=== PATIENT | female | born 1990 | race African-American/Black ===

== ENCOUNTER 2017-01-28 19:29 | Inpatient (IN) | payer OTHER ==
[~2017-01-28] VITALS: Ht 149.9 cm; Wt 59.0 kg
[2017-01-28] MEDS ORDERED: PROVENTIL HFA6.7 GM INH (20:33)
[2017-01-28] MEDS ORDERED: IBUPROFEN800 M1 PO (20:34)
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
[2017-01-28 21:03] LABS: ABSOLUTE BASOPHIL COUNT 0.1 /CUMM (0.0-0.2); ABSOLUTE EOSINOPHIL COUNT 0.1 /CUMM (0.0-0.7); ABSOLUTE GRANULOCYTE CT 4.5 /CUMM (1.4-6.5); ABSOLUTE LYMPH COUNT 1.7 /CUMM (1.2-3.4); ABSOLUTE MONOCYTE COUNT 0.5 /CUMM (0.10-0.60); BASOPHIL % 0.8 % (0.0-2.0); EOSINOPHIL % 1.9 % (0-5); GRANULOCYTE % 65.3 % (42.2-75.2); HEMATOCRIT 40.2 % (37-47); MEAN CORPUSCULAR VOLUME 91.2 FL (81.0-99.0); MEAN PLATELET VOLUME 8.7 FL (7.4-10.4); PLATELET COUNT 236 /CUMM (130-400); RBC DISTRIBUTION WIDTH 11.8 % (11.5-14.5); WHITE BLOOD CELL COUNT 6.9 /CUMM (4.8-10.8)
--- NOTE | 2017-01-28 22:45 | ED PSY CRISIS COLLATERAL NOTE ---
Collateral Note Collateral Note Family/Inform/Cheryl Contacts: This clinician spoke with grandmother Sierra Beck [phone] who reported her Jazmín has been acting differently. She reports her being paranoid lately and talking alot. The grandmother reports her grandaukiara has made suicidal statement today stating that she would kill herself. She reports Jazmín relationship with her mother is poor and currently residing with her mother.
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
--- NOTE | 2017-01-29 09:04 | ED PSY CRISIS COLLATERAL NOTE ---
Collateral Note Collateral Note Family/Inform/Cheryl Contacts: This clinician spoke with mother Javier Trotter [phone] who reports the Pt is currently residing with her and left and went to [place] for a few days. The mother reports the Pt return and was very agressive. The mother reports the Pt has been paranoid and threatning. The mother reports received serveral texts stating her daughter will kill herself " I am going to do it" " You will be crying over my body". The mother resports having custody of her child a 6 month year old.
--- NOTE | 2017-01-29 16:16 | ED PSYCHIATRIST/APRN CONSULT ---
Psychiatrist/PACKAGE DYEING MACHINE OPERATOR ED Consult Assessment and Plan: 26 y/o woman w/ hx behavioral issues, depressed mood, brought in b/c she had texted mother she wanted to kill herself. She was found to be paranoid, disorganized and oddly related;not reliable historian. She presented similarly, initially coherent (though whispering) but then quickly becoming paranoid about her mother setting her up, being involved in ultimatums to control me and to not allow her to see her children (mother has custody) and involved in her admission here. She stated that she went to [facility] over the weekend b/c she had family there but was unable to explain what she did there, why she went suddenly , overall guarded and returns to topic of her mother continuously. She denied any symptoms, interrupting and going in tangent about her mother setting her up when asked. She stated that she has no mental health problems though she has been in treatment since adolescence, and that she does not need treatment. She did not want any treatment currently, denied any recent meds. MSE: young woman, well groomed with good eye contact. Whispering initially; with rapid speech once evaluation continued. Perseverative about her mother, off topic and difficult to redirect to other topics when discussing mother. Mood is irritated, affect somewhat labile. Suspect some developmental delay/cognitive deficits but no gross abnormalities. Thought process tangential; content + global paranoia toward mother and others involved in her care. Insight absent to current sx, judgment poor. A: 26 y/o woman presents w/ paranoia, tangential thinking, unknown baseline; per family had written text she had wanted to kill herself, which she denies. Unclear whether she has some personality/developmental sx which cause some of her current sx or whether this is a primary psychiatric d/o. Dx unspecified psychotic d/o. P: needs IP admission for diagnostic clarification, suicidal statements over text; erratic behavior - consider meds (and re-start if she had them?). Need collateral from her outpatient support/DCF involvement she stated she had support from [employer]; to get her baseline and more information about her family situation.
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
[2017-01-30 14:25] VITALS: BP 119/50
[2017-01-30 16:51] VITALS: BP 131/77
--- NOTE | 2017-01-30 17:05 | CPS MD/APRN INITIAL ASSE PSYCH ---
Psychiatric Admission Vascular Tech's Note Reviewed: Yes Patient Seen and Examined: Yes Identifying Information: young woman Chief Complaint: suicidal statements Reaction to Hospitalization: irritated initially History of Present Illness Onset of Illness: several years ago Circumstances Leading to Admission: texted her brother that she wanted to kill self Problem(s) Justifying Need for Admission: suicidal threats Other HPI: see below Past Psychiatric History Past Diagnosis(es)- if any: has dss services, some learning disability Past Precipitating Factors- if any: argument w/ mother - Include inpatient and outpatient treatment Treatment History: outpatient treatment however she is very vague about details History of Suicide Attempts or Gestures she denied any Substance Abuse History: cannabis daily Allergies: Coded Allergies: No Known Allergies (01/28/17) Home Med List: albuterol prn asthma, motrin prn pain - Include any medical condition(s) that may - impact the patient's recovery/remission Past Medical History: asthma Past History Medical History Neurological: LEARNING DISABILITY EENT: NONE Cardiovascular: NONE Respiratory: asthma Gastrointestinal: NONE Hepatic: NONE Renal: NONE Musculoskeletal: NONE Psychiatric: NONE, depression, substance abuse Endocrine: NONE Isolation History: Standard Surgical History Surgical History: non-contributory Psychiatric Family/Social Hx Family History Psychiatric Illness: denied Substance Use: unknown Suicides: unknown Social History Living Situation: lives w/ mother - no longer wants to live w her Significant Relationships (family/friends): mother, cousins and grandmother, children are her supports Education: HS, not in special education Vocation/Occupation: works currently Legal: denied Healthly Behaviors Screening Tobacco Screening Tobacco Use from ED Docu: Never used - If tobacco counseling indicated - the following topics are required. - #1 Recognizing dangerous situations. - #2 Coping Skills. - #3 Basic information about quitting. Status of Tobacco Cessation Counseling: N/A B/C NO TOB USE Cessation Med Status: No Tobacco Use last 30d Alcohol Screening - ETOH screen POS if BAL >=80 or Audit-C>= M4/F3 Audit-C Score from Diag Assess: 0 Blood Alcohol Level: Laboratory Tests 01/28 2037 Toxicology Serum Alcohol (<10 MG/DL) < 10.0 Alcohol Use Screening Results: Neg per Audit C &/or BAL - If ETOH counseling indicated - the following topics are required. - #1 Express concern about the patient's - drinking at unhealthy levels, include informing - of national norms for moderate drinking: - men <= 14 drinks/week, max 4 drinks/occasion - women <= 7 drinks/week, max 3 drinks/occasion - #2 Providing feedback, including linking alcohol to - negative physical effects (liver injury, hypertension) - negative emotional effects (relationship problems and - depression) - negative occupational consequences (reduced work - performance) - #3 Advising the patient to abstain from alcohol or - to drink below national norms for moderate drinking - (as listed above). Status of ETOH Use Counseling: N/A B/C NO ETOH Use Metabolic Screening - Screen if on a Neuroleptic Medication - Metabolic screening should include: - Blood Pressure, BMI, Glucose or Hgb A1c, & a - Lipid profile from within the past 365 days. Metabolic Screening () Not Applicable, patient not on a neuroleptic. OR () Patient on a neuroleptic(s) . Enter below results for Glucose or Hemoglobin A1C, and lipid panel if obtained during the last 365 days. BMI: 26.200 Blood Pressure: 131/77 Laboratory Results (If applicable): Exam and Plan Mental Status Examination Ambulation Status: normal Appearance: well groomed Attitude towards examiner: irriated Psychomotor activity: normal Behavior: odd, erratic statements at times Quality of speech: normal to rapid Affect: constricted to full Mood: irritated Suicidal Ideation: none currently, however endorsed to nurses earlier Homicidal Ideation: none Hallucinations: denied Paranoid/Delusional Material: believes she was set up by her mother or brother to be here Difficulties with thought organization: tangential, needs redirection at times Insight: impaired Judgment: impaired Orientation: x3 Cognition: grossly intact Memory Function: grossly intact Estimate of intellectual functioning: below average Assets/Strengths Patient Identified Assets/Strengths: family support, young children Impression/Plan Impression and Plan: 26 y/o woman w/ hx behavioral issues, depressed mood, brought in b/c she had texted brother she wanted to kill herself. She was found to be paranoid, disorganized and oddly related; not reliable historian. She stated that her mother was involved in ultimatums to control me and to not allow her to see her children (mother has custody of one child), then stating that her brother may also be involved. She interrupted frequently, stating that maybe I do belong here, thats what they want, its protocol with DCF, someone put in an anonymous tip on me and similar statements perseverating on her mother. She stated that she has been fine when asked any questions regarding appetite, sleep etc; stating she went to [facility] to see some friends and came back b/c of her family asking her to return earlier, and then she ended up in the hospital. She denied SI/HI to me, however she had endorsed SI to nurse on admission. She stated to nursing that suicide was something she might plan for, then denying it. She is difficult to get a coherent story from, going back to her mother when any questions are asked. She did state that she had been in outpatient mental health tx in the past; has had ER visits for mental health; no suicide attempts. MJ daily, no other drug use. mother has custody of one of her children and she has partial custody of another. She frequently laughed inappropriately, did not appear to understand the reason for admission, denying any sx. She stated that she has to work on Tuesday and requested to be discharged by them, was educated regarding stabilization may take several days.A: 26 y/o woman presents w/ paranoia, tangential thinking, unknown baseline; per family had written text she had wanted to kill herself, which she denies. Unclear whether she has some personality/developmental sx which cause some of her current sx or whether this is a primary psychiatric d/o. Dx unspecified psychotic d/o. P: needs IP admission for diagnostic clarification, suicidal statements over text; erratic behavior (family stated she has been acting different recently). She refused any meds, stating Im not that crazy despite education. Need to call DCF rn case manager on Tuesday to f/up w/ her text message and with her baseline. Also she stated she has a DDS worker who would be able to provide some more information regarding her baseline. - Include all active medical diagnosis that require tx DSM 5 Diagnosis(es): unspecified psychogic disorder - Initial Tx Plan for Active Psych & Medical Conditions Treatment Plan: milieu, groups, collateral from family - Factors that would help patient function - in a less restrictive setting. Factors: She has risks associated w/ recent suicidal threats, vague and ambivalent statements about suicide; paranoia.
[2017-01-30 20:01] VITALS: BP 131/96
--- NOTE | 2017-01-30 23:39 | Admission Certification ---
Admission Certification Certification Statement - As attending physician, I certify that at the time of - admission, based on clinical presentation, severity of - symptoms, need for further diagnostic testing and - therapeutic interventions, and risk of adverse outcomes - without in-hospital treatment, in my clinical assessment, - this patient requires an acute hospital stay for a minimum - of two nights or longer. I have also considered psychsocial - factors such as support system, advanced age, financial - issues, cognitive issues, and failed out-patient treatments, - past re-admission history, safety of patient, and lack of - compliance as applicable. Specific rationale supporting this admission is: suicidal ideation
--- NOTE | 2017-01-30 23:39 | History & Physical ---
General Information and HPI MD Statement: I have seen and personally examined ILANA PETIT and documented this H&P. The patient is a 26 year old F who presented with a patient stated chief complaint of [medical evaluation]. Source of Information: patient Exam Limitations: no limitations History of Present Illness: Patient is admitted for evaluation of suicidal ideation. Patient appears frustrated and keeps on saying "may be I belong here" She is currently menstruating. She has asthma and uses ventolin as and when required, approximately once a week. no CP, SOB, palpitation, headache, dizziness, nausea, vomiting, constipation, diarrhea, abdo pain, leg swelling, urinary complaints, neurologic weakness, hallucination, delusions, suicidal ideation. She is worried about missing her work. Allergies/Medications Allergies: Coded Allergies: No Known Allergies (01/28/17) Home Med list Albuterol Sulfate (Proventil Hfa) 90 MCG HFA.AER.AD 2 PUF INH PRN ASTHMA ( Reported) Ibuprofen 800 MG TABLET 1 TAB PO PRN PAIN/INFLAMMATION (Reported) Compliance With Home Meds: GOOD Past History Travel History Traveled to [place] past 21 day No Medical History Neurological: LEARNING DISABILITY EENT: NONE Cardiovascular: NONE Respiratory: asthma Gastrointestinal: NONE Hepatic: NONE Renal: NONE Musculoskeletal: NONE Psychiatric: NONE, depression, substance abuse Endocrine: NONE Blood Disorders: NONE Cancer(s): NONE POST ACUTE CARE NURSE PRACTITIONER/Reproductive: NONE (3 year back), chlamydia Isolation History: Standard Surgical History Surgical History: non-contributory Past Family/Social History Family History Relations & Conditions if any MOTHER FHx: stroke Psychosocial History Where do you live? Home Services at Home: None Primary Language: Telugu Smoking Status: Never Smoked ETOH Use: occasional use Illicit Drug Use: marijuana Living Will? unknown Functional Ability ADLs Independent: dressing, eating, toileting, bathing. Ambulation: independent IADLs Independent: shopping, housework, finances, food prep, telephone, transportation , medication admin. Sexual History Sexually Active Yes # of partners 1 Sexual Orientation Heterosexual Use of Protection Yes Sometimes Employment History Employment Employed ([employer]) Review of Systems Review of Systems Constitutional: Reports: no symptoms. EENTM: Reports: no symptoms. Cardiovascular: Reports: no symptoms. Respiratory: Reports: no symptoms. GI: Reports: no symptoms. Genitourinary: Reports: no symptoms. Musculoskeletal: Reports: no symptoms. Skin: Reports: no symptoms. Hematologic/Endocrine: Reports: no symptoms. Date of LMP: 01/29/17 Exam & Diagnostic Data Last 24 Hrs of Vital Signs/I&O Vital Signs Date Time Temp Pulse Resp B/P B/P Pulse O2 O2 Flow FiO2 Mean Ox Delivery Rate 01/30 2001 98.4 92 131/96 01/30 1651 81 131/77 01/30 1425 97.6 90 119/50 01/30 1338 97.6 88 16 111/79 92 Room Air 01/30 0813 98.4 71 16 114/68 100 Room Air Intake & Output 01/30 0000 01/30 0800 01/30 1600 Intake Total Output Total Balance Patient 58.967 kg Weight Physical Exam General Appearance Alert, Oriented X3, Cooperative, No Acute Distress Skin No Rashes, No Breakdown, No Significant Lesion HEENT Atraumatic, PERRLA, EOMI, Mucous Membr. moist/pink Neck Supple, No JVD, No thryomegaly, +2 Carotid Pulse wo Bruit Lymphatic Cervical nl Cardiovascular Regular Rate, Normal S1, Normal S2, No Murmurs Lungs Clear to Auscultation, Normal Air Movement Abdomen Normal Bowel Sounds, Soft, No Tenderness, No Hepatospenomegaly Neurological Exam Findings: Normal Gait, Normal Speech, Strength at 5/5 X4 Ext, Normal Tone, Sensation Intact, Cranial Nerves 3-12 NL, Reflexes 2+ Cranial Nerves II through XII: 3 to 12 intact Extremities No Clubbing, No Cyanosis, No Edema, Normal Pulses, No Tenderness/ Swelling Vascular Normal Pulses, Pulses Symmetrical Last 24 Hrs of Labs/Hussein: Laboratory Tests 01/29 825 Chemistry Sodium (137 - 145 mmol/L) 138 Potassium (3.5 - 5.1 mmol/L) 3.5 Chloride (98 - 107 mmol/L) 99 Carbon Dioxide (22 - 30 mmol/L) 26 Anion Gap (5 - 16) 14 BUN (7 - 17 mg/dL) 11 Creatinine (0.5 - 1.0 mg/dL) 0.7 Estimated GFR (>60 ml/min) > 60 BUN/Creatinine Ratio (7 - 25 %) 15.7 Glucose (65 - 99 mg/dL) 92 Calcium (8.4 - 10.2 mg/dL) 9.4 Assessment/Plan Assessment: # SI : await psy plan # Asthma: continue prn albuterol # menstrual cramps: motrin 800 (patient's request) As Ranked By This Provider Problem List: 1. Depression Miscellaneous Miscellaneous Documentation Attending Case Discussed With: CHRISTIAN TOM,ANDRIA Rowell Primary Care Physician: UNKNOWN Patient sees these Specialists unknown Level of Patient Care: BROOK Tran
[2017-01-31 08:13] VITALS: BP 106/75
[2017-01-31 12:25] VITALS: BP 105/68
--- NOTE | 2017-01-31 15:19 | CP SOUTH PROGRESS NOTE PSYCH ---
Psych (Inpt) Progress Note Progress Note Include the following elements, when applicable: Involvement in the active treatment of the patient with behavioral observations of the patient and the patient's response to the treatment. Review of the ongoing treatment process in the context of the treatment plan. Indication of how multi-disciplinary staff members are carrying out the treatment plan. Plans for future interventions and recommendations for revision of the treatment plan. Liaison with other physicians/providers. Progress Note: I discussed this patient's progress to date, current mental status, treatment process in the context of the treatment plan, and discharge planning with staff/ team in the daily morning inpatient team meeting. I also met with the patient myself in individual session. S: "I don't know why I'm here?" O: Current Medications Sig/Giselle Start time Last Medication Dose Route Stop Time Status Admin Albuterol Sulfate 2 PUF Q4 PRN 01/30 1700 AC INH Hydroxyzine HCl 25 MG AT BEDTIME NEED.. 01/30 1700 AC 01/30 PO 2254 Hydroxyzine HCl 25 MG Q6-PRN PRN 01/30 1700 AC PO Ibuprofen 800 MG ONCE PRN 01/31 0600 DC PO 01/31 0601 Ibuprofen 400 MG ONCE ONE 01/30 2245 DC 01/30 PO 01/30 2246 2254 Ibuprofen 400 MG Q4P PRN 01/30 1700 AC 01/31 PO 1116 Vital Signs Date Time Temp Pulse Resp B/P B/P Pulse O2 O2 Flow FiO2 Mean Ox Delivery Rate 01/31 1225 88 105/68 01/31 0813 97.8 93 106/75 01/30 2001 98.4 92 131/96 01/30 1651 81 131/77 A: Chart, progress notes, VS, labs and medication list were reviewed. Vital signs within normal limits. No new labs results today. Patient is a 26-year old AAF, with an unclear psychiatric history, self reported learning disorder and ? personality/developmental symptoms possibly contributing to recently presenting symptoms of paranoia and disorganized thought process. Per ED Crisis evaluation on 01/28/17, the patient was BIBA due to the belief that she had been "set up" by her mother and her job ([employer]). On encounter today, the patient reported that on 01/28/17, she was brought to ED by her grandmother and her [id number] by Jacob farmer from [place] to ED initially for unclear reasons. She attributed her being brought here to recent DCF involvement and an altercation had with her mother, related to her going to [place] to visit her cousin last . She shared a longwinded story about having posted a picture of her godson on facebook over the weekend while in [place] visiting her cousin. She reported her grandmother saw this post, and posted back an offensive remark which she had difficulty describing. Patient stated that after that she deleted her facebook account, she texted her brother she wanted to plan her . When asked if she meant this, she denied. When asked what led her to texting this, she reported feeling "worked up." She described having a complicated and "overwhelming" relationship with her mother; at times she referred to her mother as "controlling" and "she tries to control my life." She also referred to her mother as being her "conservator" at times and then as her "rep payee" and her "only controlling my money." A VM was left for her mother to clarify whether she is her conservator (JOSE in paper chart). She reported triggers to behavior included discord with her mother in addition to recent DCF involvement related to an anonymous report. Patient denied prior DCF involvement. Reported having a 4y/o son who she shares custody of with her mother; also reported having a 6-month old son who she has full custody of. She reported living at home with her mom, 22y/o brother, 8 y/o sister, and two sons in [place]. Patient denied prior inpatient psych hospitalizations. She reported prior tx in psychotherapy during her adolescence. Denied prior trials of psychotropic medications. Reported having a DDS worker (Michelle). On encounter, patient was alert and oriented x 3; well-groomed. Mood was "alright, but I'd rather be home." Affect full-range, non-labile. Reported energy level as "fine." Thought process was tangential at times, requiring redirection back to conversation topics and questions being asked. She was difficult to redirect while talking about her mother. Speech was variable - normal to hyperverbal. Eye contact was appropriate. Behavior was overall cooperative. No psychomotor retardation or agitation. She denied passive and active suicidal ideation, plans and intent. Identified protective factors of "my 2 sons," "my grandma," "my cousin." Denied prior suicide attempts. Denied homicidal ideation, auditory and visual hallucinations. Denied paranoid thoughts. Seems unclear if patient endorses PI towards her mother; as she seems overwhelmed by the amount of control her mother has over her life which may be true if her mother is in fact her conservator or rep payee. No longer appears paranoid over job. Limited and judgement were poor. Remains unclear whether patient has underlying personality/developmental symptoms contributing to present symptoms. Patient is refusing treatment at this time, focused on returning to work tomorrow. Patient was offered to sign a termination of voluntary form, but declined at present. Was informed that if she changed her mind during the night to approach nursing to sign form. Will require collateral information for further clarification of tx history and tx needs. VM left for patient's mother today. P: 1. Continue monitoring patient on unit for safety, mood, ? paranoia and suicidal ideation. 2. Obtain collateral from patient's mother, DDS Worker, DCF to help establish baseline. Confirmation needed from mother about whether or not she is the patient's conservator, given conflicting documentation in crisis eval and conflicted reports by pt. *If she is, copy legal paperwork must be brought in* 3. Will need to schedule family meeting with mother/family for dispo planning. 4. Will continue monitoring for psych symptoms to determine need for psychotropic intervention.
[2017-01-31 16:03] VITALS: BP 133/62
--- NOTE | 2017-01-31 16:07 | IP INCIDENTAL NOTE PSYCH ---
Incidental Note Notation: left for Ellen Porras, patient's mother/ ? conservator (#[phone]) today requesting a return phone call for collateral and to clarify legal status.
--- NOTE | 2017-01-31 17:31 | SOCIAL WORKER PROG NOTE PSYCH ---
Social Work Progress Note Progress Note Mira San APRN and I met with Devorah together this afternoon. Devorah presented as cooperative, oriented x3, no overt evidence of psychosis. She denied having any SI/HI. She begain to explain how she feels "set up" by her Mother, and family to come to the hospital. She explained how she was with her DDS worker and then a DCF worker showed up. She then went on to state how she made arrangements for her family to watch her 6 month old and 4yo son, while she went to visit her cousin in [place]. She was visibly upset and very anxious when describing a 'he said, she said" story of various family members, difficutl to follow. Devorah seemed to have pressured speech, and clearly was emotional about being in the hospital, and wanting to leave. She expressed how she lives with her Mother, who is her conservator - Devorah stated she chose her Mother because she thought she needed her help. She agreed to sign a release for her Mother, and Ms. San will attempt to reach her Mother (conservator) to get copies of the papers and to get collateral. Plan for family meeting as soon as possible.
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
[2017-01-31 20:07] VITALS: BP 136/74
[2017-02-01 08:02] VITALS: BP 139/88
--- NOTE | 2017-02-01 11:39 | SOCIAL WORKER PROG NOTE PSYCH ---
Social Work Progress Note Progress Note Spoke with Devorah's Mother, Susan Porras who stated she is conservator of person, finances and estate. She is going to obtain a copy of the Conservator papers from [facility] today, and Fax them to [facility] ([id number]) office. Ms. Porras stated she cannot come in for a meeting due to babysitting issues with her grandchildren (Devorah's 2 children 6months, and 4yo), as well has her own medical appointments and her Mother's (Jimmy' Grandmother) medical appointments ( the soonest she could come in for a meeting was 02/04 at 11am ). Tried to convince Ms. Porras that Devorah may be discharged prior to 02/04, she still maintained she cannot come into [facility] for a meeting until then. Ms. Porras stated Devorah has been acting unpredictable - leaving for the past few weekends (and leaving caregiving of her 2 young children to family members), and gone for longer periods of time. Most recently was gone from last . through the weekend EDGE GLUERKirt Garcia stated when Devorah returned from [place], she appears to be under the influence of something. She states that Devorah often "wants a break" from everything and then leaves. She stated Devorah loves her two children. She stated she has noticed Devorah has been depressed since she was 10yrs old, and uses Cannibis. She stated DDS worker, Michelle Elaine has been involved with Devorah (not sure how long...years?). She didn't have her phone number available. Also, subsequently [facility] became involved due to most recent incident prior to admission. The DCF worker is, Domenic Ahuja Ph#. Plan to contact both DCF and DDS worker. Met with Devorah, informed her I spoke with her Mother (Devorah signed an JOSE - will have Mother sign as well). Devorah continued to say how she feels "set-up' by her Mother, and that her Mother wants to "just leave me here." Devorah stated she wants to leave and move somewhere else away from her Mother. She wants to appoint another Conservator. She stated she smokes Cannibis daily and does not want to stop smoking. Devorah stated she smokes at home (Cannibis), but "I take care of my children, I feed them, bathe them, then I smoke after they are all taken care of." Discussed with Devorah if she feels her Cannibis use is a problem, she denied it's a problem. She did say she was goign to quit smoking, but now that her Mother has done this (hospitalization, DCF?), that she will continue to smoke. Devorah is aware of the 11am phone conference tomorrow.
[2017-02-01 12:13] VITALS: BP 99/60
[2017-02-01 15:54] VITALS: BP 136/87
--- NOTE | 2017-02-01 18:13 | CP SOUTH PROGRESS NOTE PSYCH ---
Psych (Inpt) Progress Note Progress Note Include the following elements, when applicable: Involvement in the active treatment of the patient with behavioral observations of the patient and the patient's response to the treatment. Review of the ongoing treatment process in the context of the treatment plan. Indication of how multi-disciplinary staff members are carrying out the treatment plan. Plans for future interventions and recommendations for revision of the treatment plan. Liaison with other physicians/providers. Progress Note: I discussed this patient's progress to date, current mental status, treatment process in the context of the treatment plan, and discharge planning with staff/ team in the daily morning inpatient team meeting. I also met with the patient myself in individual session. S: "I feel like she (pt's mother) set me up." O: Current Medications Sig/Giselle Start time Last Medication Dose Route Stop Time Status Admin Albuterol Sulfate 2 PUF Q4 PRN 01/30 170 AC INH Hydroxyzine HCl 25 MG AT BEDTIME NEED.. 01/30 1700 AC 01/30 PO 2254 Hydroxyzine HCl 25 MG Q6-PRN PRN 01/30 170 AC PO Ibuprofen 400 MG Q4P PRN 01/30 1700 AC 01/31 PO 1803 Vital Signs Date Time Temp Pulse Resp B/P B/P Pulse O2 O2 Flow FiO2 Mean Ox Delivery Rate 02/01 1554 80 136/87 02/01 1213 85 99/60 02/01 0802 96.8 84 139/88 01/31 2007 98.6 89 136/74 A: Chart, progress notes, labs, VS and medication list were reviewed. No new lab results today. Vital signs within normal limits. Reviewed patient's progress to date with nursing staff. Patient has been in good behavioral & physical control, no evidence of paranoia or delusions. Attending milieu groups. Met with patient this afternoon. She expressed feeling that her mother is out to set her up. She suspects that someone called DCF in her family to make her look like an "unfit mother" d/t ongoing family discord. She reported feeling frustrated at situation, feels her mother is delaying visits/avoiding to speak to primary team to keep her here longer. Informed patient that Belgica Beltran LCSW spoke to her mother today who will be available for a phone conference tomorrow morning. I was informed by Belgica Beltran LCSW that the patient's mother confirmed that she is the patient's conservator and will bring in paperwork verifying this information. The patient remains future-oriented and focused on returning to work and follow-up with DCF once discharged. She denied passive and active suicidal ideation, plans and intent. Denied homicidal ideation. She denied acute symptoms of depression. Reported feeling frustrated and anxious about remaining here. She is not interested in medication trials for anxiety. Reported daily cannabis use, however did not state whether she used this to self-medicate. She reported "I just like to smoke." She expressed an interest in individual therapy post-discharge. Thought process was distracted, but much less than during yesterday's encounter. She responded to redirection and answered questions appropriately. She denied AVH and PI. It is unclear if patient is endorsing PI towards her mother, or if her perception of family dynamics is limited by a possible developmental/intellectual disorder in addition to family discord. Will need collateral from family to determine patient's baseline. Counseling on cannabis use was provided to patient. Informed her of the physical /mental/legal consequences of cannabis use. Also informed her that use of cannabis during a DCF investigation could lead to custody consequences with her children. She verbalized understanding of information; however reported she did not have much motivation to stop using. Judgement and insight remain limited. Speech was hyperverbal at times, non-pressured. Eye contact was appropriate. Mood "frustrated." Affect constricted, non-labile. Thought process was circumstantial. Thought content was perseverative about her mother. Congition was grossly intact. P: 1. Continue monitoring on unit for safety, mood, ? paranoia. 2. Phone conference with patient's mother tomorrow afternoon. 3. Dispo planning per primary team. 4. Obtain contact information for pt's DDS worker from pt's mother for additional collateral
[2017-02-01 20:35] VITALS: BP 125/66
[2017-02-02 07:56] VITALS: BP 125/84
--- NOTE | 2017-02-02 11:15 | CP SOUTH PROGRESS NOTE PSYCH ---
Psych (Inpt) Progress Note Progress Note Include the following elements, when applicable: Involvement in the active treatment of the patient with behavioral observations of the patient and the patient's response to the treatment. Review of the ongoing treatment process in the context of the treatment plan. Indication of how multi-disciplinary staff members are carrying out the treatment plan. Plans for future interventions and recommendations for revision of the treatment plan. Liaison with other physicians/providers. Progress Note: I discussed this patient's progress to date, current mental status, treatment process in the context of the treatment plan, and discharge planning with staff/ team in the daily morning inpatient team meeting. I also met with the patient myself in individual session. S: "She (mother) probablly won't warehouse order picker the phone, she wants me to stay here." O: Current Medications Sig/Giselle Start time Last Medication Dose Route Stop Time Status Admin Albuterol Sulfate 2 PUF Q4 PRN 01/30 1700 AC INH Hydroxyzine HCl 25 MG AT BEDTIME NEED.. 01/30 1700 AC 01/30 PO 2254 Hydroxyzine HCl 25 MG Q6-PRN PRN 01/30 1700 AC PO Ibuprofen 400 MG Q4P PRN 01/30 1700 AC 01/31 PO 1803 Vital Signs Date Time Temp Pulse Resp B/P B/P Pulse O2 O2 Flow FiO2 Mean Ox Delivery Rate 02/02 0756 96.5 82 125/84 02/01 2035 98.3 85 125/66 02/01 1554 80 136/87 02/01 1213 85 99/60 A: Chart, progress notes, labs, VS and medication list reviewed. Vital signs within normal limits. No new labs results today. Met with Haley and rene Beltran LCSW together for phone conference with Haley's mother, Ellen. Haley's mother expressed concern for her "erratic " behaviors, behavioral impulsivity, cannabis use, depression and naivetee/ easily trusting nature. Ellen expressed that Haley has learning diasbilities and doesn't always think things through. Ellen denied the patient making prior suicide attempts. She expressed that she felt Haley would benefit from a mood sabilizer, which I agreed with; however to date the patient refuses medication trials and has shut down at any mention of medication education. Ellen stated that she wants her daughter to be responsible and be a "mother" to her children. She would like Haley to transition into therapy post-discharge. Ellen informed us that she now has temporary guardianship of both of Haley's children since [facility] recently became involved. Haley became angry and began yelling at her mother for "taking control of my life, my children, they're my kids." It took both Rene and myself to explain to Haley that if he mother did not claim custody of her children than both of her children would be temporarily placed in DCF custody. She calmed down upon hearing this. Patient was A&Ox3. Speech was loud, rapid at times. Mood somewhat labile; mostly irritable towards mother, blaming mother for controlling her life despite being her conservator. She seemed able to stay better on topic during phone conference. Thought process was somewhat circumstantial. Thought content was angry. Cognition was grossly intact. She continued to deny SI, plans, intent. Deneid homicidal ideation, auditory and visual hallucinations. No evidence of overt paranoia or delusions. Insight/judgement limited. She reported sleep and appetite were good. Patient was offered a trial of Abilify 5mg for mood stabilization; patient declined, "I'm not taking any medication." Patient however was agreeable to transition into [facility] level of care post discharge at [facility]. IMPRESSION: Unspecified depression R/O Substance-induced depressive disorder R/O Bipolar disorder unspecified. P: 1. Continue monitoring for safety, mood, suicidal ideation, ? paranoia. 2. Continue education on medications, coping skills, and aftercare tx. 3. Dispo planning per primary team.
--- NOTE | 2017-02-02 12:21 | SOCIAL WORKER PROG NOTE PSYCH ---
Social Work Progress Note Progress Note Mira San APRN and I met with Devorah today and haqd a conference call meeting with her Mother, Ellen. Her Mother, Ellen expressed concern about Devorah's Cannibis use and leaving for days at a time - and having family care for 2 young children 6 month old and 4yo. Her Mother expressed how Jaron is "acting erratic" and is "depressed." She wants Devorah to engage in treatment ( therapy), and abstain from using Cannibis. She stated when Devorah smokes Cannibis "it makes you act different, more erratic." Devorah seemed to be frustrated by her Mother, essentially pleading with Devorah to tkae better care of her self, stating "you have 2 children now,, you can't just run off to [place]." Her Mother espressed how Devorah has been "sleeping with men and getting ", then stated "I want more for you, I want you to reach your goals in life, but it doesn't happen instantly." Began discussion of DCF involvement, Devorah was focused on who it was who contacted DCF. Her Mother stated she didn 't know, I mentioned how it could have been anyone - that Hospital social workers are mandated reporters too. Haley was informed that her Mother has temporary guardianship of her two children (6 mo. and 4yrs old). Devorah became very angry and was yelling at her Mother. It took time to calm Devorah down and explain that while she is in the hospital, her Mother obtained temporary guardianship to protect her children (if medical issues). Discussed with Devorah how with DCF involvement, that she will need to engage in treatment, but medications are not mandated. Devorha insists she will not take medication, but repeated "I want to smoke pot, it makes me happy." Towards the end of the meeitng Devorah did agree to consider IOP possibly at [facility] - in [place], near where she resides. Devorah exhibited a labile mood, angry at her Mother, seems to have limited insight and judgement. She repeated how she wants to go home and move to [place] with her Children. Phoned DCF worker, Domenic Arthur PH#[phone], left a voicemail to call back regarding Dveorah. Family meeting scheduled for 02/04 at 11am with Haley's Mother, Ellen, her grandmother, Sierra, and 20yo sister, as well as DCF worker, Domenic Elaine and DDS worker, Michelle Elaine. (this was soonest time famiily could come in for meeting). Ellen (Pt's Mother), stated she would bring in the conservator papers on 02/04. Completed [facility] online review. Need to obtain an JOSE for release [facility] and complete referral to [facility].
[2017-02-02 12:25] VITALS: BP 122/96
[2017-02-02 16:42] VITALS: BP 111/72
[2017-02-02 20:04] VITALS: BP 132/87
[2017-02-03 07:58] VITALS: BP 108/85
[2017-02-03 12:26] VITALS: BP 113/66
--- NOTE | 2017-02-03 14:17 | SOCIAL WORKER PROG NOTE PSYCH ---
Social Work Progress Note Progress Note Met with patient today, she is open to attending an IOP level of care. She denies si/hi/ah/vh. She reports she wants to learn ways to manage all the things she has to complete in her life, and learn ways to cope better with stress and motherhood. 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 She would like to continue to work, and learn to drive, as well as "be there for my kids". Pt has limited insight and can be paranoid at times, she is redirectable but has cognitive impairments.
--- NOTE | 2017-02-03 14:21 | SOCIAL WORKER PROG NOTE PSYCH ---
Social Work Progress Note Progress Note Faxed a referral to [facility] awaiting an intake appointment. DCF worker Joanna will not be able to attend meeting Tuesday at 11. I spoke with patients Mother she will attend meeting she is hopeful that her daughter will not be victimized and begin to take the steps she needs to do to achieve things at her own pace. Mom and patient are comfortable with discharge tomorrow, and pt is agreeable to [facility] services, once we can secure and appointment.
[2017-02-03 15:31] VITALS: BP 128/63
--- NOTE | 2017-02-03 16:14 | SOCIAL WORKER PROG NOTE PSYCH ---
Social Work Progress Note Progress Note Secured an intake appointment with [facility] at [address] on February 09, at 9:30 and 1030 with . Program will begin February 10r (T, w, TH, f) 9-12:30PM fax Number is [phone] and phone number is [phone]
--- NOTE | 2017-02-03 17:46 | CP SOUTH PROGRESS NOTE PSYCH ---
Psych (Inpt) Progress Note Progress Note Progress Note: I discussed this patient's progress to date, current mental status, treatment process in the context of the treatment plan, and discharge planning with staff/ team in the daily morning inpatient team meeting. I also met with the patient myself in individual session. OBJECTIVE: Current Medications Sig/Giselle Start time Last Medication Dose Route Stop Time Status Admin Albuterol Sulfate 2 PUF Q4 PRN 01/30 1700 AC INH Hydroxyzine HCl 25 MG AT BEDTIME NEED.. 01/30 1700 AC 01/30 PO 2254 Hydroxyzine HCl 25 MG Q6-PRN PRN 01/30 170 AC PO Ibuprofen 400 MG Q4P PRN 01/30 170 AC 01/31 PO 1803 Vital Signs Date Time Temp Pulse Resp B/P B/P Pulse O2 O2 Flow FiO2 Mean Ox Delivery Rate 02/03 1531 81 128/63 02/03 1226 90 113/66 02/03 0758 97.6 90 108/85 02/03 2004 98.0 97 132/87 ASSESSMENT: Today I am filling in for Mira San APRN. This is my first time meeting with this patient. Patient offers no complaints. She declines medications. States she feels safe and ready for discharge tomorrow morning. Her civil litigation attorney was here this afternoon to speak with her. Depression:0/10; Anxiety:0/10 (with 10 the worst.) Denies suicidal ideation, homicidal ideation, auditory hallucinations, visual hallucinations, paranoid ideation. Patient states and also believes that she will not kill herself. States that she sleeps well at home, less well here. States her appetite and energy are good. Speech is well articulated, goal-directed, average in rate, volume and tone. Calm, cooperative, logical. Alert and oriented 3. PLAN: Anticipate discharge tomorrow. Patient agrees to attend [facility]. Continue with current management as patient is improving. Continue to provide support and encouragement.
[2017-02-03 20:08] VITALS: BP 136/66
[2017-02-04 08:15] VITALS: BP 112/77
--- NOTE | 2017-02-04 11:16 | CP SOUTH PROGRESS NOTE PSYCH ---
Psych (Inpt) Progress Note Progress Note Include the following elements, when applicable: Involvement in the active treatment of the patient with behavioral observations of the patient and the patient's response to the treatment. Review of the ongoing treatment process in the context of the treatment plan. Indication of how multi-disciplinary staff members are carrying out the treatment plan. Plans for future interventions and recommendations for revision of the treatment plan. Liaison with other physicians/providers. Progress Note: I discussed this patient's progress to date, current mental status, treatment process in the context of the treatment plan, and discharge planning with staff/ team in the daily morning inpatient team meeting. I also met with the patient myself in individual session. Objective: Current Medications Sig/Giselle Start time Last Medication Dose Route Stop Time Status Admin Albuterol Sulfate 2 PUF Q4 PRN 01/30 1700 AC 02/03 INH 1830 Hydroxyzine HCl 25 MG AT BEDTIME NEED.. 01/30 1700 AC 01/30 PO 2254 Hydroxyzine HCl 25 MG Q6-PRN PRN 01/30 1700 AC PO Ibuprofen 400 MG .STK-MED ONE 02/03 2217 DC PO 02/03 2218 Ibuprofen 400 MG Q4P PRN 01/30 1700 AC 02/03 PO 2224 Vital Signs Date Time Temp Pulse Resp B/P B/P Pulse O2 O2 Flow FiO2 Mean Ox Delivery Rate 02/04 815 96.4 77 112/77 02/04 2008 97.6 91 136/66 02/03 1531 81 128/63 Assessment: Met with the patient today on the date of discharge. She presented alert and oriented to person, place, time and situation. Eye contact was appropriate. Speech was average in rate, tone and volume. She had no complaints. She reported her sleep and appetite were good. She reported depression of 0/10 (10 being the worst) and anxiety of 0/10 (10 being the worst). She denied feeling hopeless, helpless, worthless and guilty. She denied passive and active suicidal ideation, plans and intent. She denied homicidal ideation. She stated and also believed she will not harm herself or others. She identified protective factors of "my cousin," "my kids," "my grandma," and "sister." She denied auditory and visual hallucinations, and paranoid ideation. There was no evidence of delusions. Thought process was linear. Cognition was grossly intact. Insight and judgement remained limited. Remained resistant to psychotropic medication trials; remained ambivalent about stopping use of cannabis. She reported feeling safe and ready for discharge. Met with the patient, her sister Joanne, her grandmother Ms. Beck, her mother Ellen, her DDS worker Michelle, and her home improvement advisor Samanta, together with Belgica Beltran COMPUTER PROCESSING SCHEDULER and this technical publications writer for a family meeting prior to discharge. The patient's family expressed their main concern was related to the patient's cannabis use and the consequences it would have on her children now that DCF is involved. They did not express any acute safety concerns, but expressed that the patient does not take her responsibilities as a parent seriously. As a result the patient's mother remains in temporary custody of her two sons. The patient's family and care workers were very supportive of the patient and all were in favor of discharge plan to [facility]. Patient was also agreeable to discharge plan. Counseling on cannabis use, in addition to the health/social/legal risks were provided. Plan: 1. Discharge today to home and family. 2. F/u at [facility] on 02/09/17 at 9:30AM. 3. Abstain from all substances. Patient was strongly advised to attend AA/NA meetings for support in sobriety. 4. In the event of an emergency, call 911/go to nearest emergency department. Patient verbalized understanding of instruction.
--- NOTE | 2017-02-04 11:17 | DISCHARGE SUMMARY REPORT-PSYCH ---
Visit Information Visit Dates/Diagnosis' Admission Date: 01/30/17 Discharge Date: 02/04/17 Reason for Admission: Suicidal ideation without plan or intent. Psy Discharge Primary Diag: Unspecified depressive disorder Psy Discharge Secondary Diag: R/O Bipolar disorder unspecified; R/O psychosis unspecified; R/O Cluster B traits; Cannabis use disorder; learning disorder by history; Asthma. Hospital Course Significant Lab Findings: Lab Urine Test NEGATIVE 01/31/17 0319 Course Complications: None. Consultations: The patient was seen for admission history and physical by huc ob Dr. Warren North. Please see MD note for additional information. Allergies: Coded Allergies: No Known Allergies (01/28/17) Hospital Course/TX Response: The patient was monitored on the unit for safety, mood, suicidal ideation, and ? paranoia towards her mother who recently gained temporary custody over her two young children secondary to recent DCF involvement. The patient participated in multimodal treatments on unit. Patient refused trial of Abilify for mood stabilization/depression and would not discuss trials of alternative psychotropics. The patient refused all psychotropic medication trials. During the hospital course, the patient consistently denied suicidal ideation. The patient frequently presented preoccupied over her conflicted relationship with her mother and her mother now having temporary custody of her two children. It was unclear if this preoccupation was complicated by developmental or personality factors. A family meeting was held with the patient, her conservator /mother, her grandmother, sister, DDS worker, and home delivery driver from [place], Belgica Beltran LCSW, and this tag writer. The patient's treatment progress, level of safety and discharge plan were reviewed and discussed. The patient's family and care workers expressed their main concern was related to the patient's cannabis use and the consequences it would have on her children now that DCF is involved. They did not express any acute safety concerns, but expressed that the patient does not take her responsibilities as a parent seriously. As a result the patient's mother remains in temporary custody of her two sons. The patient's family and care workers were very supportive of the patient and all were in favor of discharge plan to [facility]. Patient was also agreeable to discharge plan. Counseling on cannabis use, in addition to the health/social/legal risks were provided. On the date of discharge, 02/04/17, the patient presented alert and oriented to person, place, time and situation. Eye contact was appropriate. Speech was average in rate, tone and volume. She had no complaints. She reported her sleep and appetite were good. She reported depression of 0/10 (10 being the worst) and anxiety of 0/10 (10 being the worst). She denied feeling hopeless, helpless, worthless and guilty. She denied passive and active suicidal ideation, plans and intent. She denied homicidal ideation. She stated and also believed she will not harm herself or others. She identified protective factors of "my cousin," "my kids," "my grandma," and "sister." She denied auditory and visual hallucinations , and paranoid ideation. There was no evidence of delusions. Thought process was linear. Cognition was grossly intact. Insight and judgement remained limited. Remained resistant to psychotropic medication trials; remained ambivalent about stopping use of cannabis. She was again counseling on the risks of cannabis use; she verbalized understanding of education. She reported feeling safe and ready for discharge. Discharge HBIPS - Tobacco Use Treatment Offered Post DC Medications Offered: NA-No Tob Use >30 days Post DC Tobacco Treatment Plan: NA-No Tobacco use >30days - EtOH/Drug Use D/O Treatment Offered Post DC Medications Offered: Med Not Indicated for D/O Post DC EtOH/SubAbuse TX Plan: Other SubAbuse/Dual Pgm Program Appt Date: 02/09/17 Program Appt Time: 0930 ([facility]) Metabolic Screening - Screen if on a Neuroleptic Medication - Metabolic screening should include: - Blood Pressure, BMI, Glucose or Hgb A1c, & a - Lipid profile from within the past 365 days. Metabolic Screening ([X]) Not Applicable, patient not on a neuroleptic. OR () Patient on a neuroleptic(s) . Enter below results for Glucose or Hemoglobin A1C, and lipid panel if obtained during the last 365 days. BMI: 26.200 Blood Pressure: 112/77 Laboratory Results (If applicable): n/a Discharge Instructions General Discharge Information Discharge Medications: Discharge Medications- (Dose, route, freq, indication): HOME MEDICATION LIST CONTINUE taking these Home Medications: Albuterol Sulfate Dose: Inhale through mouth, (Proventil Hfa) 90 MCG 2 Puff as needed for ASTHMA HFA.[id number].[email or web address] Your Preferred Pharmacy [facility] [id number] [place], [place] [phone] Multiple Neuroleptics: ([X]) Not Applicable OR Document below three failed attempts at monotherapy, or a plan to taper to monotherapy, or augmentation of Clozapine. () Patient's Diet: Regular. Patient's Activity: No restrictions. DC Disposition: To return to home, children, and mother. Recommendations: Patient was advised to please abstain from all substances. She was strongly advised to attend daily AA/NA meetings and obtain a sponsor for support in sobriety. She was advised to follow-up with [facility] scheduled appointment and DCF post-discharge. She was advised that in the event of an emergency, to call 911/go to nearest emergency department. Patient verbalized understanding of all instructions. *Recommend considering trial of mood stabilizer if patient is agreeable. She was resistant to psychotopic trials during hospitalization. Referred To: [facility] [address] [place] [address]#[phone] INTAKE ON . 02/09/17 AT 9:30 (ARRIVE 15 MIN EARLY). MEET WITH 02/09/17 AT 10AM ([facility] START 02/10/17, , FROM 9AM-12:30PM Copies To: [facility]
--- NOTE | 2017-02-04 11:38 | SOCIAL WORKER PROG NOTE PSYCH ---
Social Work Progress Note Progress Note Met in team meeting with Mira San APRN and Dr. Kim and staff to discuss progress and discharge planning. Devorah reports no SI/Hi, no psychosis. She is ambivalent about giving up Cannibis, stating how it helps her "chill." She continues to refuse any medications for mood. Mira San APRN and I met with Devorah and her family (Mother - Ellen, grandmother, Sierra, sister) and DDS worker, Michelle Santoyo, Patricia Negron, [facility] worker all attended the meeting. Devorah's family appropriately expressed concern and each spoke about how they want Devorah to stay clean off drugs (Cannibis). They spoke in a loving, supportive manner. Devorah seemed irritable, and defiant about wanting to keep "smoking weed", and how the family is "trying to take control of my life." Her Mother, Ellen stated she does not want to control her life, and wants Devorah to care for her kids and herself. Discussed concequences to her continued drug use - and DCF involvement - which could lead to Dveorah losing custody of her two children. Devorah seemed to calm down towards the end of the meeting and seemed more receptive when her DDS worker, Ms. Sandoval spoke (involved with Devorah for past 7yrs). She also seemed to be less defensive with these women ([facility] and [facility]). Recommended Al-Anon for Devorah's Mother, Ellen. Discussed follow-up care - [facility] at [address] in [place]. The intake is scheduled for February 09 at 9:30am, then a 10:30 Psychiatrist appointment. Her [facility] will begin on February 10 from 9am -12:30pm (, Tues, ). # . Faxed W10 to [facility] in [place].
== END 2017-02-04 12:40 | DRG 754 ==
LOC: ERH 19:29 → ERHI 01-30 13:31 → CP SOUTH 01-30 13:31 → EDBEDREQ 01-30 13:44 → CP SOUTH 01-30 14:17 → ENPENDDIS 02-04 23:59
PROVIDERS: Physician Assistant; Psychiatry & Neurology Psychiatry; ADMIT Psychiatry & Neurology Addiction Medicine
DX: F32.9 Major depressive disorder, single episode, unspecified (principal); F12.90 Cannabis use, unspecified, uncomplicated; F81.9 Developmental disorder of scholastic skills, unspecified
CPT/HCPCS: 80307; 81025; G0463; G0480; J3490